=== PATIENT | female | born 1945 | race Caucasian/White ===

== ENCOUNTER → 2016-06-17 | Outpatient (CLI) | payer OTHER, MEDICARE ==
[~2016-06-17] MED LIST: ALG PO; CATAPLEX D PO; CELLULAR VITALITY PO; CITA20TA9 PO; CODCAP4 PO; DOCU-94 PO; MISCCAP80 PO; OXYC-57 PO; OXYC1TAB3 PO; POLY335019 PO; SENN8.6C PO; ZOLP5TAB PO; [UNRECOGNIZED DRUG - CODE] PO; [UNRECOGNIZED DRUG - CODE] PO
== END | disposition home or self-care (01) ==
LOC: C.CPL 12:25
PROVIDERS: ATTEND Otolaryngology
DX: Z01.810 Encounter for preprocedural cardiovascular examination (principal)

== ENCOUNTER → 2016-07-11 | Day surgery (SDC) | payer OTHER, MEDICARE ==
[2016-07-01 13:55] VITALS: Ht 175.3 cm; Wt 88.6 kg
--- NOTE | 2016-07-09 08:37 | History and Physical: Surg Cnt ---
History & Physical Date Jul 09, 2016. Chief Complaint cyst pharynx History of Present Illness The patient is a 70 year old female with complaints of Past Medical/Surgical History Medical Problems: (1) STILL OPERATOR BRANDY lymphoma Additional History Hepatic Disease: No Endocrine Disorder: No Kidney Disease: No Hypertension: No Heart Disease: No Bleeding Tendencies: No Infectious Diseases: No Allergies Coded Allergies: Penicillins (Verified Allergy, Intermediate, RASH, 07/01/16) Sulfa Drugs (Verified Allergy, Intermediate, RASH, 07/01/16) Adhesives (Verified Allergy, Unknown, BANDAIDS=BLISTERY RASH, 07/01/16) Povidone (Verified Allergy, Unknown, BLISTERY RASH, 07/01/16) Prochlorperazine (Verified Adverse Reaction, Unknown, DYSTONIA, 07/01/16) Uncoded Allergies: MRI CONTRAST DYE (Allergy, Unknown, SNEEZING, 07/01/16) Home Medications Scheduled Cod Liver Oil (Cod Liver Oil), 3 CAP PO QAM Probiotic Product (Probiotic), 3 CAP PO QAM [Cataplex D], 2 TAB PO QAM [Cellular Vitality], 3 CAP PO QAM [Livapoex], 3 CAP PO QAM Scheduled PRN Oxycodone/Acetaminophen 5MG/325MG (Percocet 5MG/325MG), 1 TABLET PO BID PRN for Pain Physical Examination Skin: warm/dry, no rash Eyes: normal inspection, EOMI, sclerae normal ENT: normal ENT inspection, pharynx normal, + pertinent finding (cyst in nasopharynx and right oropharynx, posterior tonsillar pillar) Head: normocephalic, atraumatic Neck: supple, no adenopathy, trachea midline Respiratory/Chest: lungs clear, normal breath sounds, no respiratory distress Cardiovascular: regular rate, rhythm, no edema, no murmur Abdomen / GI: normal bowel sounds, non tender Back: normal inspection Extremities: normal inspection, normal range of motion Neurologic/Psych: no motor/sensory deficits, alert, normal reflexes, oriented x 3 Diagnosis pharyngeal cysts Plan of Treatment excisional biopsy with direct laryngoscopy
[~2016-07-11] VITALS: Ht 175.3 cm; Wt 88.6 kg
[~2016-07-11] MED LIST changes: -ALG PO; +ATROPINE SULFATE 0.1 MG/ML 5ML SYR IV PRN; +BUPIVACAINE/EPINEPHRINE 0.5% MPF 1:200,000 30 ML VIAL ONE; +CEFAZOLIN 2000 MG/60 ML D5W IV SCH; -CITA20TA9 PO; +DEXAMETHASONE SOD INJ 4 MG/ML VIAL ONE; -DOCU-94 PO; +EpHEDrine SULFATE INJ 50 MG/ML AMP IV PRN; +EpINEphrine INJ 1MG/ML AMP 1 MG/ML AMP ONE; +FENTANYL CITRATE INJ 50 MCG/1 ML 2 ML VIAL IV PRN; +FENTANYL CITRATE INJ 50 MCG/1 ML 2 ML VIAL ONE; +LACTATED RINGER'S 1000ML 1,000 ML IV SCH; +LIDOCAINE HCL 2% 2 ML VIAL (20MG/ML) ONE; +MIDAZOLAM HCL 1 MG/ML 2ML VIAL ONE; +ONDANSETRON INJ 2 MG/ML 2 ML VIAL IV PRN; +ONDANSETRON INJ 2 MG/ML 2 ML VIAL ONE; -OXYC1TAB3 PO; +OXYCODONE/ACETAMINOPHEN 5-325 TAB ONE; +OXYCODONE/ACETAMINOPHEN 5-325 TAB PO PRN; -POLY335019 PO; +PROPOFOL IV EMULSION 10 MG/ML 20 ML VIAL IV ONE; -SENN8.6C PO; +SODIUM CHLORIDE 0.9% 1000ML 1,000 ML IV SCH; +SUCCINYLCHOLINE CHLORIDE 20 MG/ML 10 ML VIAL IV ONE; -ZOLP5TAB PO; -[UNRECOGNIZED DRUG - CODE] PO
--- NOTE | 2016-07-11 07:02 | History & Physical Bridge Note ---
H&P Re-Evaluation Bridge Note: I have examined the patient, reviewed the History & Physical and in the interval since the performance of the History & Physical I have noted the following changes of clinical significance: No changes noted
--- NOTE | 2016-07-11 07:48 | Discharge Instructions-SurgCtr ---
Discharge Instructions Date of Service Jul 11, 2016. Visit Reason for Visit: Pharyngeal Cyst Discharge Discharge Diagnosis / Problem: same Discharge Goals Goal(s): Diagnostic testing Medications Stopped Medications Name(s): Pt. was told not to take any ASA before surgery. Activity Recommendations Activity Limitations: resume your previous activity Anesthesia . Post Anesthesia Instructions: If you have had General Anesthesia or IV Sedation: * Do not drive today. * Resume driving when surgeon permits. * Do not make important decisions or sign legal documents today. * Call surgeon for: 1. Temperature elevations greater than 101 degrees F. 2. Uncontrollable pain. 3. Excessive bleeding. 4. Persistent nausea and vomiting. 5. Medication intolerance (nausea, vomiting or rash). * For nausea and vomiting use only clear liquids such as: tea, soda, bouillon until nausea subsides, then gradually increase diet as tolerated. * If you have any concerns or questions, call your surgeon's office. If physician is unavailable and it is an emergency, call 911 or go to the nearest emergency room. . Diet Recommendations Home Diet: special diet Diet Texture: Mechanical Soft (ground) Procedures Procedures Performed: Direct Laryngoscopy, Oropharynx Cyst Excision Pending Studies Studies pending at discharge: yes List of pending studies: biopsy adenoid and right oropharynx Medical Emergencies . Who to Call and When: Medical Emergencies: If at any time you feel your situation is an emergency, please call 911 immediately. . Non-Emergent Contact Non-Emergency issues call your: Primary Care Provider . . "Provider Documentation" section prepared by Shanae Bishop. . [place] Drug Monitoring Program Search Results: no issues identified
[2016-07-11 08:55] VITALS: TEMP 36.6
--- NOTE | 2016-07-11 09:14 | Anesthesia Progress Nt - [facility] ---
Anesthesia Post Op Note Date & Time Jul 11, 2016 at 09:13 Vital Signs Pain Intensity: 4.0 Vital Signs Past 12 Hours Date Time Temp Pulse Resp B/P Pulse Ox O2 Delivery O2 Flow Rate FiO2 07/11/16 08:55 36.6 69 141/71 98 Room Air 07/11/16 08:28 36.6 70 21 07/11/16 08:28 70 21 95 07/11/16 08:25 144/72 07/11/16 08:23 70 13 94 07/11/16 08:23 70 13 07/11/16 08:20 143/86 07/11/16 08:18 74 20 07/11/16 08:18 75 20 96 07/11/16 08:15 145/87 07/11/16 08:13 71 13 07/11/16 08:13 72 13 99 07/11/16 08:10 142/73 07/11/16 08:08 65 14 98 07/11/16 08:08 65 14 07/11/16 08:05 146/70 07/11/16 08:03 77 20 99 07/11/16 08:03 75 20 07/11/16 08:01 131/63 07/11/16 07:58 77 17 07/11/16 07:58 17 07/11/16 07:55 143/72 07/11/16 07:53 79 07/11/16 07:53 79 146/81 97 07/11/16 07:53 36.2 78 12 146/81 97 Humidified Oxygen 6 Mask 07/11/16 06:39 36.6 64 16 170/93 98 Room Air Notes Mental Status: alert / awake / arousable, participated in evaluation Pt Amnestic to Procedure: Yes Nausea / Vomiting: adequately controlled Pain: adequately controlled Airway Patency, RR, SpO2: stable & adequate BP & HR: stable & adequate Hydration State: stable & adequate Anesthetic Complications: no major complications apparent
[2016-07-11 09:17] VITALS: BP 151/80; PULSE 68; O2SAT 98
--- NOTE | 2016-07-11 09:43 | OPERATIVE REPORT ---
DATE OF OPERATION: 07/11/2016 PREOPERATIVE DIAGNOSIS: Right oropharyngeal cyst. POSTOPERATIVE DIAGNOSIS: Same plus adenoid tissue. PROCEDURE: Direct laryngoscopy with excision of cyst right oropharynx and then adenoidectomy. SURGEON: Dr. Bishop. ANESTHESIA: General endotracheal. COMPLICATIONS: None. BLOOD LOSS: 20 mL. HISTORY OF PRESENT ILLNESS: This 70-year-old lady with history of lymphoma, presented with persistent sore throat and a cystic lesion on the right oropharynx at the previous tonsillectomy area. She was also noted to have round protruding lesion in the nasopharynx consistent either with a cyst or adenoid tissue. Because the history of lymphoma excisional biopsy was felt to be indicated. OPERATION AND FINDINGS: PROCEDURE: The patient was brought to the operating room and placed in supine position. General endotracheal anesthesia was induced, prepped, draped in usual sterile manner. The soft palate was retracted using a red Deleon catheter. Adenoidectomy was performed using the adenotome. Hemostasis controlled using suction Bovie. The direct laryngoscopy was performed using the Dedo scope. Endolarynx, piriform sinus areas, vallecula and epiglottis were normal. The cyst in the right oropharynx was excised using a #12 blade and Metzenbaum scissors. Hemostasis was controlled using the suction Bovie. The pharynx was irrigated clean with saline. The patient tolerated the procedure well and was taken to recovery area in satisfactory condition. I attest to the content of the Intraoperative Record and any orders documented therein. Any exceptio ns are noted below.
== END | disposition home or self-care (01) ==
LOC: X.SURG 06:21
PROVIDERS: ATTEND Otolaryngology
DX: J39.2 Other diseases of pharynx (principal); J35.2 Hypertrophy of adenoids; I10 Essential (primary) hypertension; G47.33 Obstructive sleep apnea (adult) (pediatric); Z85.6 Personal history of leukemia; Z88.0 Allergy status to penicillin; Z88.2 Allergy status to sulfonamides; Z68.29 Body mass index [BMI] 29.0-29.9, adult; Z90.89 Acquired absence of other organs

== ENCOUNTER → 2016-08-20 | Outpatient (CLI) | payer OTHER, MEDICARE ==
[~2016-08-20] MED LIST changes: -ATROPINE SULFATE 0.1 MG/ML 5ML SYR IV PRN; -BUPIVACAINE/EPINEPHRINE 0.5% MPF 1:200,000 30 ML VIAL ONE; -CEFAZOLIN 2000 MG/60 ML D5W IV SCH; -DEXAMETHASONE SOD INJ 4 MG/ML VIAL ONE; -EpHEDrine SULFATE INJ 50 MG/ML AMP IV PRN; -EpINEphrine INJ 1MG/ML AMP 1 MG/ML AMP ONE; -FENTANYL CITRATE INJ 50 MCG/1 ML 2 ML VIAL IV PRN; -FENTANYL CITRATE INJ 50 MCG/1 ML 2 ML VIAL ONE; -LACTATED RINGER'S 1000ML 1,000 ML IV SCH; -LIDOCAINE HCL 2% 2 ML VIAL (20MG/ML) ONE; -MIDAZOLAM HCL 1 MG/ML 2ML VIAL ONE; -ONDANSETRON INJ 2 MG/ML 2 ML VIAL IV PRN; -ONDANSETRON INJ 2 MG/ML 2 ML VIAL ONE; -OXYCODONE/ACETAMINOPHEN 5-325 TAB ONE; -OXYCODONE/ACETAMINOPHEN 5-325 TAB PO PRN; -PROPOFOL IV EMULSION 10 MG/ML 20 ML VIAL IV ONE; -SODIUM CHLORIDE 0.9% 1000ML 1,000 ML IV SCH; -SUCCINYLCHOLINE CHLORIDE 20 MG/ML 10 ML VIAL IV ONE
[2016-08-20 13:46] LABS: ALT/SGPT 30 U/L (12-78); BLOOD UREA NITROGEN 16 mg/dl (7-18); BUN/CREATININE RATIO 17.9 (10-20); CARBON DIOXIDE 28 mmol/L (21-32); CHLORIDE 108 mmol/L (98-107); CHOLESTEROL 262 mg/dl (0-200); CREATININE 0.91 mg/dl (0.60-1.20); GLUCOSE 88 mg/dl (70-99); POTASSIUM 4.7 mmol/L (3.5-5.1); SODIUM 142 mmol/L (136-145)
[2016-08-20 13:50] LABS: CALCIUM 8.9 mg/dl (8.5-10.1)
[2016-08-20 13:51] LABS: ALKALINE PHOSPHATASE 73 U/L (45-117); AST/SGOT 26 U/L (15-37); CHOLESTEROL/HDL RATIO 4.4; HDL CHOLESTEROL 59 mg/dl; LDL CHOLESTEROL CALCULATED 176 mg/dl; TRIGLYCERIDES 133 mg/dl (0-150); VERY LOW DENSITY LIPOPROT CALC 27 mg/dl
== END | disposition home or self-care (01) ==
LOC: C.LABPBG 09:25
PROVIDERS: ATTEND Family Medicine
DX: E78.5 Hyperlipidemia, unspecified (principal)

== ENCOUNTER → 2016-09-12 | Outpatient (CLI) | payer OTHER, MEDICARE ==
[~2016-09-12] MED LIST changes: +CODCAP PO; -CODCAP4 PO
--- NOTE | 2016-09-12 14:35 | MAMMOGRAPHY REPORT ---
BILATERAL DIGITAL SCREENING MAMMOGRAM WITH CAD: 09/12/2016 CLINICAL HISTORY: Routine screening. Patient has no complaints. TECHNIQUE: Current study was also evaluated with a Computer Aided Detection (CAD) system. Bilateral CC and MLO and right X CCM views were obtained. COMPARISON: Comparison is made to exams dated: 09/12/2015 mammogram, 09/01/2014 mammogram - [facility], 08/27/2013 mammogram, 01/24/2012 mammogram, and 10/04/2010 mammogram. BREAST COMPOSITION: There are scattered areas of fibroglandular density in both breasts. FINDINGS: No suspicious masses, calcifications, or areas of architectural distortion are noted in ei ther breast. There has been no significant interval change compared to prior exams. Scattered bilater al benign-appearing calcifications are not significantly changed. There are stable changes from bila teral reduction mammoplasty. A port catheter projects over the right pectoralis muscle. IMPRESSION: ACR BI-RADS CATEGORY 2: BENIGN There is no mammographic evidence of malignancy. A 1 year screening mammogram is recommended. The pa tient will receive written notification of the results. Approximately 10% of breast cancers are not detected with mammography. A negative mammographic report should not delay biopsy if a clinically suggestive mass is present. Anita Curtis M.D. ah/:09/12/2016 12:12:29 Wastewater Operator: Etta HANNA(Alma)(Silvio)([place]), [facility] letter sent: Normal 1/2 BI-RADS Code: ACR BI-RADS Category 2: Benign
== END | disposition home or self-care (01) ==
LOC: C.MAMM 11:26
PROVIDERS: ATTEND Family Medicine
DX: Z12.31 Encounter for screening mammogram for malignant neoplasm of breast (principal); Z85.6 Personal history of leukemia

== ENCOUNTER → 2017-07-29 | Outpatient (CLI) | payer OTHER, MEDICARE ==
[~2017-07-29] MED LIST changes: -CODCAP PO; +CODCAP4 PO
--- NOTE | 2017-07-29 14:52 | DIAGNOSTIC IMAGING REPORT ---
MRI THE RIGHT SHOULDER NO CONTRAST CLINICAL HISTORY: M25.519 right shoulder pain COMPARISON STUDY: No previous studies for comparison. FINDINGS: Imaging was performed the sagittal, coronal, and axial planes. There are no areas of marrow edema to indicate occult fracture or bone bruise. There is a full-thickness tear of the supraspinatus tendon. There is a partial-thickness tear of the infraspinatus tendon. Subscapularis tendon appears intact. Portions of the supraspinatus tendon demonstrate mild tendinous retraction. There is no evidence of labral tear. The bicipital tendon within the bicipital groove is poorly visualized. This likely indicates extensive tendinopathy/tear IMPRESSION: 1. Full-thickness rotator cuff tear 2. No evidence of occult fracture 3. Poor visualization of the bicipital tendon likely indicating extensive tendinopathy/tear Electronically signed by: Johny Back M.D. 07/29/2017 2:51 PM Dictated Date/Time: 07/29/2017 2:47 PM
== END | disposition home or self-care (01) ==
LOC: C.MRI 13:51
PROVIDERS: ATTEND Family Medicine
DX: M75.101 Unspecified rotator cuff tear or rupture of right shoulder, not specified as traumatic (principal)